=== PATIENT | male | born 1950 | race Caucasian/White ===

== ENCOUNTER 2022-01-30 08:37 | Outpatient (RCR) | payer MEDICARE, OTHER, SELFPAY ==
--- NOTE | 2022-01-30 14:36 | PTOPEVAL ---
Thank you for referring Sukh Mckeon to [facility] The patient is scheduled to be seen for therapy? __2__x/week for 8 visits. Please review, sign, date and return this plan of care KHUSHI. I agree with and certify that the following plan of care is medically necessary. Referring Physician Date Admitting Provider: Attending Provider: Savita Graham Referring Provider: *PT Outpatient Evaluation Start: 01/30/22 08:57 Freq: Status: Active Protocol: Document 01/30/22 08:57 ALBA (Rec: 01/30/22 09:50 ALBA [id number]) Therapy Assessment Status Assessment Status Assessment Status Evaluation Evaluation Information Problem Diagnosis left knee sprain Onset 01/09/22 Subjective Information Pt. reports that he woke about Query Text:As Reported By Patient/ 3 weeks ago with pain in the Family left knee. He reports that the pain was initially worsening and felt like to knee was going to buckle. He reports that he went to the doctor and recieved xray. He received a cortisone injection on 01/24/22 which has helped. He reports that he does have a sense of pressure in the knee. He reports that pain is currently mild with standing and walking. Pt. reports that he is currently on a weight loss program and was walking regularly and exercising daily . His goal is to be able to return to the regimen. Prior Level of Function Comments Additional Prior Level of Function Pt. had no restriction with Comments daily activities prior to his onset. Pain Assessment Pain Scale Pain Scale Used Numeric (1 - 10) Self Report Pain Assessment Left Knee(s) Reported Pain Level 2 Lowest Pain Intensity 1 Greatest Pain Intensity 2 Pain Score Pain Score 2: Self Report Interventions Used Interventions Used By Clinicians Electrical Stimulation, Exercise,Heat Lower Extremity Range of Motion General Lower Extremity Range of Motion Gross Lower Extremity Range of Motion -right knee AROM 0-121 Comments -left knee AROM 0-116 Lower Extremity Muscle Strength Testing General Lower Extremity Strength Gross Lower Extremity Strength -bilateral hip flexion 4+/5 -bilateral hip abduc
== END 2022-02-28 14:18 | disposition home or self-care (01) ==
LOC: CHSPT 08:37
DX: S83.92XA Sprain of unspecified site of left knee, initial encounter (principal)
CPT/HCPCS: 97014; 97110; 97112; 97161; 97530; G0283

== ENCOUNTER 2023-10-29 08:16 | Outpatient (RCR) | payer MEDICARE, OTHER, SELFPAY ==
--- NOTE | 2023-10-29 09:33 | OPREHPOC ---
Outpatient Therapy Plan of Care This is a Multidisciplinary Plan of Care that may contain components documented by all disciplines (PT, OT, and ST.) PT Problem 1 PT Problem #1 Knowledge Deficit PT Goal 1 Goal 1. independent and compliant with HEP Target Visit 6 PT Problem 2 PT Problem #2 Pain PT Goal 1 Goal 1. patient to report no more than 2/10 pain in the neck, L shoulder, L UE. 2. patient to report no more than 2/10 pain in the L knee. Target Visit 12 PT Problem 3 PT Problem #3 Impaired Range of Motion PT Goal 1 Goal 1. improve L shoulder active flexion to 145 degrees 2. improve L knee extension to 0 degrees 3. improve L knee flexion to 120 degrees 4. improve active cervical extension to 35 degrees or better without pain 5. improve bilateral cervical sidebending to 25 degrees or better Target Visit 12 PT Problem 4 PT Problem #4 Impaired Strength PT Goal 1 Goal 1. improve L shoulder/UE strength deficits to 4+/5 or better 2. improve L knee extension to 5/5 Target Visit 12 PT Problem 5 PT Problem #5 Impaired Functional Mobil PT Goal 1 Goal 1. QD to display less than 20% functional deficits 2. patient to report no paresthesias past the L shoulder 3. patient to ambulate with normal gait mechanics for 800ft or more in 6 minutes Target Visit 12
--- NOTE | 2023-10-29 09:38 | PTOPEVAL1 ---
Assessment and note entered by JT File, PT Evaluation Information Assessment Status Evaluation Diagnosis L shoulder pain, bilateral knee pain Onset 10/22/23 Subjective Information patient reports a couple months ago he was walking down the steps at home. he reports he stepped on a dog toy and rolled the R ankle. he reports he fell back into the steps on his back. he reports the ankle had no fractures on xray. he reports the ankle got better on its own. however, while he was favoring the R ankle, his L knee began to hurt . he reports one saturday he was unable to put pressure on the L LE. he reports xray workup at ER was negative. he was on crutches for about a week or so. he reports the chiropractor treated him for a bit. he reports the L hand will go numb at times with certain positions/movements of the L shoulder. he reports something in his back will pop and the numbness/tingling will go away. as far as the L knee goes, he will get sharp pains at times, but then it pops and his pain will go away. he reports he has chronic bursitis in both his knees. it was treated withe meds for a while, but then had a medication change and now they bother him all the time. he reports he has increased L knee pain at times with standing/walking, but after a pop it will feel better. he reports laying on a hard surface will create increased shoulder pain/arm symptoms. he reports he has tingling down the whole arm to all the fingers. Reported Pain Level Pain Score 2,2: Self Report Assessment PT Clinical Summary mr. campos is a 73 yo man who presents to skilled PT services for evaluation and treatment of L knee and L shoulder pain. he presents today with worse symptoms in the L shoulder than the L knee currently. he also reports paresthesias in the L UE. his signs and symptoms indicate a cervical radiculopathy of the L side, and OA of the L knee. he displays decreased cervical/shoulder/knee rom, decreased UE and LE strength, and paresthesias down to the L hand. he would benefit from continued skilled PT services and progress towards a return to his prior level functional activity performance/quality of life. Plan of Care Interventions Electrical Stimulation,Gait Training,Hot Pack/Cold Pack,Manual Therapy,Mechanical Traction,Neuro Re- education,Patient/Caregiver Educati,Therapeutic Activities,
--- NOTE | 2023-11-27 07:03 | PCPTNOTE ---
Patient rescheduled session. Patient states he has another appointment around the same time.
--- NOTE | 2023-11-29 09:23 | OPREHPOC ---
Outpatient Therapy Plan of Care This is a Multidisciplinary Plan of Care that may contain components documented by all disciplines (PT, OT, and ST.) PT Problem 1 PT Problem #1 Knowledge Deficit PT Goal 1 Goal 1. independent and compliant with HEP Target Visit 6 Progress Met PT Problem 2 PT Problem #2 Pain PT Goal 1 Goal 1. patient to report no more than 2/10 pain in the neck, L shoulder, L UE. 2. patient to report no more than 2/10 pain in the L knee. Target Visit 12 Progress Partially Met PT Problem 3 PT Problem #3 Impaired Range of Motion PT Goal 1 Goal 1. improve L shoulder active flexion to 145 degrees 2. improve L knee extension to 0 degrees 3. improve L knee flexion to 120 degrees 4. improve active cervical extension to 35 degrees or better without pain 5. improve bilateral cervical sidebending to 25 degrees or better Target Visit 12 Progress Partially Met PT Problem 4 PT Problem #4 Impaired Strength PT Goal 1 Goal 1. improve L shoulder/UE strength deficits to 4+/5 or better 2. improve L knee extension to 5/5 Target Visit 12 Progress Met PT Problem 5 PT Problem #5 Impaired Functional Mobil PT Goal 1 Goal 1. QD to display less than 20% functional deficits 2. patient to report no paresthesias past the L shoulder 3. patient to ambulate with normal gait mechanics for 800ft or more in 6 minutes Target Visit 12 Progress Partially Met
--- NOTE | 2023-11-29 09:23 | PTOPDC ---
Assessment and note entered by Gela Hale DPT Evaluation Information Assessment Status Discharge Diagnosis L shoulder pain, bilateral knee pain Onset 10/22/23 Subjective Information patient reports that his L shoulder is much improved. He reports he is now able to lay down without shoulder pain. he reports he does have occasional numbness in the L UE but that is also much improved. He reports his knees are also improved. He reports some tightness in the L knee but none in the R. He reports he has been able to return to all daily activities. He reports independence with HEP Reported Pain Level Pain Score 1,2: Self Report Pain Score 1,0: Self Report Assessment PT Clinical Summary Mr. Mckeon attended 12 sessions of skilled PT with great progress towards goals. He demonstrates decreased pain, improved cervical and L shoulder ROM and improved LE strength with reports of return to all prior activities. He has returned to laying down, navigating stairs and walking. He is independent with HEP and is appropriate for DC at this time. Plan of Care PT Services Indicated No
== END 2023-11-29 15:11 | disposition home or self-care (01) ==
LOC: CHSPT 08:16
PROVIDERS: PCP Family Medicine; Visit Provider Family Medicine
DX: M25.512 Pain in left shoulder (principal); M25.561 Pain in right knee; M25.562 Pain in left knee
CPT/HCPCS: 97014; 97110; 97140; 97150; 97161; G0283